=== PATIENT | male | born 1955 | race Caucasian/White ===

== ENCOUNTER 2024-10-19 13:30 | Outpatient (RCR) | payer MEDICARE, BC, SELFPAY ==
--- NOTE | 2024-10-19 15:06 | PT.OPEX ---
PT [place] Outpatient Eval PT [facility] Outpatient Eval Start: 10/19/24 08:28 Freq: Status: Active Protocol: Document 10/19/24 14:44 HLA (Rec: 10/19/24 15:00 HLA [id number]) E-signed By Tammy Workman PT, DPT Physical Therapy Outpatient Evaluation Insurance Information Recert Due Date 01/16/25 Insurance Name Blue Cross/Blue Shield Medical Diagnosis R hip pain, OA, stiffness, upcoming ant R ALCIDES Treating Diagnosis weakness, difficulty amb, preop training with walker Imaging Report Information OA R hip Referring MD [place] Subjective Preferred Name ADAIR Subjective Pt has hx of OA, R hip pain, laterally, increases with standing and walking, limits amb. Also limits sleep. Has had hx of RTC tears, knee scopes, this is his first joint replacement. Pt is active at baseline, works out often, golfs. Wants to get back to activities he enjoys. Pain Comments pain R lateral hip varies - Date of Last Physician Visit 10/14/24 Date of Surgery (If applicable) 10/24/24 Current Work Status Retired Precautions Treatment Precautions/Contraindications R ant ALCIDES pending Weight Bearing Status Weight Bear as Tolerated Therapy Limitations/Systems Review Not Limited Objective Range of Motion R hip flex 0-100 degrees, abd 0-25, ER 0-45, IR 0-20 L hip flex 0-120, abd 0-60, IR 0-60 R knee pain with extension, 5- 110 ankles 0-20 DF, 0-50 PF Strength 4/5 R hip and knee, pain; 5/5 L LE Swelling no edema Palpation pain lat hip on palpation Balance & Gait gt steady, antalgic R hip, grimaces but stable level surfaces. Pt can amb 100 feet only right now due to pain, previously amb golf course 18 holes. Posture good Sensation/Reflexes intact light touch Assessment Assessment/Impression BJ is a 69 year old male with hx of OA, B RTC pain, L knee scope, now has increased OA pain R hip limiting gt and activities and sports. Pt presents with decreased end range R Hip AROM and weakness R hip 4/5 otherwise WNL. He transfers ind and amb 150 feet today no device ind but antalgic R hip. Grimaces with pain. He lives with his in a 1 level home, no stairs to enter. Pt was instructed in anterior ALCIDES ex program (quad sets, glut sets, ham sets, ankle pumps, heel slides, standing hip abduction, and supine lying flat) per protocol to be practiced pre- operatively and for improved learning post-operatively. Pt was instructed in hospital post-op progression in PT, safety, fall prevention. Pt was instructed in positioning in chair, use of ice/polar care, bed, transfer safety, gt safety with walker, stairs, car transfers and outpatient therapy progression. Primary Functional Limitations pain with ADLs, amb, stairs, transfers Plan of Care Rehabilitation Potential Good Physical Therapy Goals Within this session: Pt will verbalize understanding of pre -op/post-op safety, mobility and exercises with home program issued and pt returning for ongoing therapy after ALCIDES replacement. 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 ([employer]) Treatment Plan/Direct Interventions Gait Training,Ice/Cold/ Vasopneumatic,Joint Mobilization,Manual Therapy, Neuromuscular Re-ed,Self-Care/ Home Management,Therapeutic Activities,Therapeutic Exercises Frequency/Duration 1x Patient Will Be Discharged From Therapy Completion of LTG(s),Skills Plateau,Independent w/HEP, Independently Progressing Discharge Plan Comments PT goal met preop; pt to do OP PT in [place] Evaluation Billing Untimed Code Treatment Minutes 10 PT Eval No Charge No Complexity Low Certification Information Initial Certification Date 10/19/24 Ending Certification Date 01/16/25 Provider Signature Required Yes Provider Signature Shows Agreement With POC & Medical Necessity Physician NPI Number Write NPI# Here Physician Comment/Change : Physician Signature & Date Requested Please Sign/Date Here
== END 2024-10-20 08:32 | disposition home or self-care (01) ==
PROVIDERS: PCP Orthopaedic Surgery Sports Medicine; Visit Provider Orthopaedic Surgery Sports Medicine
DX: M16.11 Unilateral primary osteoarthritis, right hip (principal); Z51.89 Encounter for other specified aftercare
CPT/HCPCS: 97110; 97161; 97530

== ENCOUNTER 2024-10-24 06:05 | Day surgery (SDC) | payer MEDICARE, BC, SELFPAY ==
[2024-10-18 14:00] VITALS: BP 136/91; PULSE 80; RESP 16; O2SAT 93
[2024-10-24] VITALS (20 sets, daily range): BP systolic 94–154; BP diastolic 54–87; PULSE 62–83; RESP 14–18; TEMP 36.2–36.6; O2SAT 90–100; BMI 59.3
--- OUTSIDE RECORDS SUMMARY | 2024-10-24 06:10 | XMS_ITS | Clinical Summary ---
Author Organization [facility] Address [address] [place] [address] Care Team Providers Care Orthotist Name Role Phone Elsewhere, Pcp Primary Care Provider Unavailabl e Source Comments Patient records contain information from all sites at [facility]. For routine questions regarding patient records, call [phone] during business hours, M-F 8:00 AM - 5:00 PM Central Time. Record requests for emergency care only can be directed to [phone] at any time.[facility] Allergies Active Allergy Reactions Criticality Noted Date Comments Glucosamine Hives (Reselect Reaction) 8 Medications * This document contains information received from the source organization and may not represent a complete record from that organization. simvastatin (ZOCOR) 40 mg tablet Take 40 mg by mouth daily. Active fish oil 1,000 mg capsule Take 1,000 mg by mouth 2 (two) times a day. Active cetirizine (ZyrTEC) 10 mg tablet Take 10 mg by mouth daily. Active topiramate (TOPAMAX) 50 mg tablet Take 50 mg by mouth 2 (two) times a day. Active multivitamin tablet Take 1 tablet by mouth daily. Active acyclovir (ZOVIRAX) 200 mg capsule Take 200 mg by mouth daily. Once a day as needed Active famotidine (PEPCID) 20 mg tablet Take 1 tablet (20 mg total) by mouth daily. Before bed 30 tablet 3 07/09/2023 Active omeprazole (PriLOSEC OTC) 20 mg EC tablet Take 20 mg by mouth daily. Active ketorolac (Acular) 0.4 % ophthalmic solution INSTILL 1 DROP TO SURGICAL EYE FOUR TIMES DAILY STARTING 1 DAY BEFORE SURGERY 05/23/2024 Active prednisoLONE acetate (Pred Forte) 1 % ophthalmic suspension SHAKE LIQUID AND INSTILL 1 DROP TO SURGICAL EYE FOUR TIMES DAILY STARTING 1 DAY BEFORE SURGERY 05/23/2024 Active Active Problems Problem Noted Date Diagnosed Date Abnormal Computed Tomography Abdomen 01/28/2023 Nodule Pulmonary 09/01/2022 Overview (09/01/2022): Added automatically from request for surgery [id number] Lymphadenopathy Mediastinum 09/01/2022 Overview (09/01/2022): Added automatically from request for surgery [id number] Lymphadenopathy Hilar 09/01/2022 Overview (09/01/2022): Added automatically from request for surgery [id number] Hyperlipidemia Gastroesophageal Reflux Disease NOS Overweight Body Mass Index 25-29.9 Adult Immunizations Immunization Administration Dates Next Due H1N1 All Forms 09/20/2009 Tdap 03/07/2018 Social History Tobacco Use Types Packs/Day Years Used Date Smoking Tobacco: Never Smokeless Tobacco: Never Tobacco Cessation:Counseling Given: Not Answered Alcohol Use Standard Drinks/Week Comments Yes 0 (1 standard drink = 0.6 oz pur e alcohol) occasional Social Connection and Isolat ion Panel [NHANES] Answer Date Recorded In a typical week, how many times do you talk on the phone with family, friends, or neighbors? More than three times a week 08/29/2022 How often do you get togethe r with friends or relatives? Twice a week 08/29/2022 Attends Caoda[employer] Services Not on file 08/29 Active Member of Clubs or Organizations Not on f ile 08/29/2022 Attends Club or Organization Meetings Not on gonzalo e 08/29/2022 Marital Status Not on file 08/29/2022 AUDIT-C Answer Date Recorded Q1: How often do you have a drink containing alc ohol? 2-3 times a week 08/29/2022 Q2: How many drinks containi ng alcohol do you have on a typical day when you are drinking? 1 or 2 08/29/2022 Frequency of Binge Drinking Not on file 08/06 Exercise Vital Sign Answer Date Recorde d On average, how many days pe r week do you engage in moderate to strenuous exercise (like a brisk walk)? 3 days 08/29/2022 On average, how many minutes do you engage in exercise at this level? 30 min 08/29/2022 PRAPARE - Transportation Answer Date Re corded In the past 12 months, has l ack of transportation kept you from medical appointments or from getting medications? No 08/06 In the past 12 months, has l ack of transportation kept you from meetings, work, or from getting things needed for daily living? No 08/29/2022 Housing Stability Vital Sign Answer Robb e Recorded In the last 12 months, was t here a time when you were not able to pay the mortgage or rent on time? No 08/29/2022 In the last 12 months, how many places have you lived? 1 08/29/2022 In the last 12 months, was t here a time when you did not have a steady place to sleep or slept in a halfway (including now)? No 08/29/2022 Nutrition Answer Date Recorded On average, how many serving s of fruits and vegetables do you eat per day (serving size is equal to 1 cup or approximately the size of a tennis ball)? 2-3 08/29/2022 Dental Answer Date Recorded Dental: Regular Dentist Unknown 12/04/19 21 Employment Answer Date Recorded Employment status Retired 08/29/2022 Education Answer Date Recorded What is the highest level of school you have completed or the highest degree you have received? 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 Legal Sex Male 1:59 AM CUTTER MACHINE TENDER Gender Identity Male 08/29/2022 8:29 PM CUTTER MACHINE TENDER Sexual Orientation Straight 08/29/2022 8: 29 PM CUTTER MACHINE TENDER Last Filed Vital Signs Vital Sign Reading Time Taken Comments Blood Pressure 132/78 06/14/2024 9:14 AM CDT Pulse 76 06/14/2024 8:59 AM CDT Temperature 36.7 C (98.1 F) 02/06/2023 6:51 AM CDT Respiratory Rate 16 06/14/2024 8:59 AM CDT Oxygen Saturation 97% 06/14/2024 8:59 AM CDT Inhaled Oxygen Concentration - - Weight 92.8 kg (204 lb 9.6 oz) 06/14/2024 8:59 A M CDT Height 185 cm (6' 0.84) 06/14/2024 8:59 AM CDT Body Mass Index 27.12 06/14/2024 8:59 AM CDT Plan of Treatment Health Maintenance Due Date Last Done Comments CT Colonography 1954 Cologuard 1954 Colonoscopy 1954 Colorectal Cancer Screening 1954 FIT 1954 Hepatitis C Screening 1954 Lipid (Cholesterol) Screening 1954 COVID-19 Vaccine ( season) 2024 09/11/2022, 07/29/2021, 12/31/2020, Additional history exists Influenza Vaccine (#1) 2024 , 08/06/2022, 09/04/2021, Additional history exists Depression Screening (Annual PHQ-2) 10/05/2024 Fall Risk Screen (Annual) 10/05/2024 Fasting Glucose for Diabetes Screening 02/18/2026 02/18/2023, 09/04/2022, 08/21/2022 DTaP,Tdap,and Td Vaccines (3 - Td or Tdap) 03/07/2028 03/07/2018, 09/22/2011 Abdominal Aortic Aneurysm (AAA) Screen Discontinued 02/13/2016 Zoster Vaccines Completed 09/14/2018, 05/20/2018 Pneumococcal vaccine (50+ years) Completed 08/06/2022, 09/04/2021, 06/22/2019 IPV Vaccines Aged Out No longer eligi ble based on patient's age to complete this topic Procedures Procedure Name Priority Date/Time Associated Diagnosis Comments GLUCOSE POCT, B Routine 02/18/2023 8:[address] ABDOMEN PELVIS WITH IV CONTRAST Routine 02/13/2016 9:32 AM CDT from Last 3 Months or Most Recently Relevant to Health Maintenance Results * Glucose, POCT (02/18/2023 8:04 AM CDT) Glucose, POCT, B 91 70 - 140 mg/dL 02/18/2023 8:04 AM CDT MDSE Blood 02/18/2023 8:04 AM CDT 02/18/2023 8:20 AM CDT us Generic Rals LAB POCT ORDERABLES-MANUAL Final Result [facility] [address] [place] [address], [facility] MDSE [facility] [address] [place] [address] * CT Abdomen Pelvis with IV Contrast (02/13/2016 9:32 AM CDT) Anatomical Region Laterality Modality Abdomen, Pelvis N/A Computed Tomogra phy 02/13/2016 9:32 AM CDT Addenda Addendum by Carmelo Camacho M.D. on 02/13/2016 9:32 AM CDT RAD^^^MA CT Abdomen/Pelvis w/ contrast 02/13/2016 09:32:39 Addendum by Carmelo Camacho M.D. on 02/13/2016 8:09 AM CDT RAD^^^MA CT Abdomen/Pelvis w/ contrast 02/13/2016 08:09:00 Impressions 02/13/2016 11:04 AM CDT Diverticulosis. Small right renal cyst. Narrative 02/13/2016 11:04 AM CDT EXAM: CT Abdomen/Pelvis w/ contrast INDICATION: ABD PAIN COMPARISON: None. FINDINGS: 4 partially visualized lung bases are clear. The liver is unremarkable except for a tiny hypodensity in the inferior right lobe too small to accurately characterize. No CT evidence for bladder calculi. 1.2 cm right renal cyst. Kidneys are otherwise normal. Both adrenal glands are normal. Normal spleen and pancreas. No bile duct distention. No retroperitoneal or mesenteric lymphadenopathy. The appendix is normal. No pelvic mass or fluid. Fat-containing right inguinal hernia. Distal colonic diverticulosis without evidence for diverticulitis. Procedure Note Asif Ivory D.O. / ProviderCarmelo M.D. - 02/06/2017 EXAM: CT Abdomen/Pelvis w/ contrast INDICATION: ABD PAIN COMPARISON: None. FINDINGS: 4 partially visualized lung bases are clear. The liver is unremarkable except for a tiny hypodensity in the inferior right lobe too small to accurately characterize. No CT evidence for bladder calculi. 1.2 cm right renal cyst. Kidneys are otherwise normal. Both adrenal glands are normal. Normal spleen and pancreas. No bile duct distention. No retroperitoneal or mesenteric lymphadenopathy. The appendix is normal. No pelvic mass or fluid. Fat-containing right inguinal hernia. Distal colonic diverticulosis without evidence for diverticulitis. IMPRESSION: Diverticulosis. Small right renal cyst. Theresa Ryan [facility] [place] [place] PROCEDURES Edited Result - Final from Last 3 Months or Most Recently Relevant to Health Maintenance Insurance MEDICARE [facility] Advance Directives For more information, please contact: [phone] Documents on File Type Date Recorded Patient Doctor Chiropractic Expl anation Advance Directives 04/04/2020 9:55 AM POA f or health care * Full Code (Latest Code Status on File) Date Activated Date Inactivated Comments 09/04/2022 8:05 AM 09/04/2022 1:45 PM Question Answer Comments Full Code: Discussed Healthcare Agents on File Name Relationship Healthcare Agent Relationship Communication Lala Alverto Daughter Health Care Agent Aida Huerta Spouse First Alternate Health Care Agent Jailene Huerta Son Second Alternate Health Care Agent Care Teams Orthotist Relationship Specialty Start Date End Date Elsewhere, Pcp PCP - General Internal Medicine 09/04/22
--- OUTSIDE RECORDS SUMMARY | 2024-10-24 06:10 | XMS_ITS | Clinical Summary ---
Author Organization [facility] Address [place], [place] [address] Care Team Providers Care Locker Room Clerk Name Role Phone Tawanna Woods APRN, FREELANCE DATA ENTRY Primary Care Provider Allergies Active Allergy Reactions Criticality Noted Date Comments Glucosamine Hives,Rash 03/07/2018 Medications acyclovir (ZOVIRAX) 200 mg capsule Take 200 mg by mouth once daily. Active cetirizine (ZYRTEC) 10 mg tablet Take 10 mg by mouth once daily. Active multivitamin (MVI) tablet Take 1 Tablet by mouth once daily. Active simvastatin (ZOCOR) 40 mg tablet Take 40 mg by mouth at bedtime. Active topiramate (TOPAMAX) 50 mg tablet Take 50 mg by mouth two times daily. Active omega-3 fatty acids (FISH OIL) cap Take 2,000 mg by mouth once daily. Active omeprazole (PRILOSEC) 20 mg Delayed-Release capsule Take 20 mg by mouth once daily before a meal. Active Active Problems No known active problems Immunizations Name Administration Dates Next Due COVID-19 vaccine (Moderna 10 0mcg/0.5mL) PF, MDV 07/29/2021,12/31/2020,12/04/2020 COVID-19 vaccine (Moderna 50 mcg/0.5mL) 12YO+ BIVALENT PF, MDV 09/11/2022 Influenza A (H1N1), Inactivated 09/20/2009 Influenza, High-dose Inactivated 06/22/2019 Influenza, High-dose Quadriv alent Inactivated 08/07/2023,09/04/2021,07/27/2020 Influenza, IIV3 (Age 6-35 mos) 08/19/2016,2012 Influenza, IIV3 (Age >=3 years) 07/19/2012 Influenza, IIV4 09/07/2018 Influenza, IIV4 (=>6mos) MDV 08/14/2014 Influenza, Inactivated AIIV4 (Age 65+ Years) Preserv Free 08/06/2022 Pneumococcal Conj 20-valent (Prevnar 20) 022 Pneumococcal Poly,23-Valent (Pneumovax) 09/04/20 21 Pneumococcal conj 13-Valent (Prevnar 13) 019 Tdap 03/07/2018,09/22/2011 Zoster (Shingrix-RZV, recombinant) 09/14/2018, Social History Tobacco Use Types Packs/Day Years Used Date Smoking Tobacco: Never Smokeless Tobacco: Never Tobacco Cessation:Counseling Given: Not Answered Alcohol Use Standard Drinks/Week Comments Yes 0 (1 standard drink = 0.6 oz pur e alcohol) social Sex and Gender Information Value Date Recorded Sex Assigned at Male 05/25/2024 6:34 AM CDT 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 Gender Identity Male 05/25/2024 6:34 AM CDT Sexual Orientation Straight 05/25/2024 6: 34 AM CDT Obstetrics History Last Filed Vital Signs Vital Sign Reading Time Taken Comments Blood Pressure 127/72 05/25/2024 9:00 AM CDT Pulse 66 05/25/2024 9:00 AM CDT Temperature 36.2 C (97.1 F) 05/25/2024 9:00 AM CDT Respiratory Rate 15 05/25/2024 9:00 AM CDT Oxygen Saturation 99% 05/25/2024 9:00 AM CDT Inhaled Oxygen Concentration - - Weight 90.7 kg (199 lb 15.3 oz) 024 12:11 PM CDT Height 185.4 cm (6' 0.99) 05/11/2024 1 2:11 PM CDT Body Mass Index 26.39 05/11/2024 12:11 PM CDT Plan of Treatment Health Maintenance Due Date Last Done Comments Depression screening for age 12+ 1966 BMI (ht and wt on same day) for age 18+ 1972 Hepatitis C screening for ag e 18-79 1972 Colonoscopy through age 75 1999 Lipids for age 45-75 1999 COVID-19 vaccine series (2023- season) 2024 09/11/2022, 07/29/2021, 12/31/2020, Additional history exists Influenza for age 65+ 06/05/2024 08/07/2023 , 08/06/2022, 09/04/2021, Additional history exists Tetanus booster 03/07/2028 03/07/2018, 09/22/2011 RSV vaccine for adults or (1 - 1-dose 75+ series) 2029 Tdap Completed 03/07/2018, 09/22/2011 Zoster (shingles) series for age 50+ Completed 09/14/2018, 05/20/2018 Pneumococcal series for age 50+ Completed 08/06/2022, 09/04/2021, 06/22/2019 Medical Devices Implanted Type Area Director Of Financial Planning Device Identifier Shelf Expiration Date Model / Serial / Lot Clareon Toric Aspheric Uv Absorbing Iol [id number] +18.0d Implanted:Qty: 1 on 05/11/2024 by Chato Woodson MD at [facility] Right: Eye 12/09/2026 [id number] +18.0D / [id number] / Clareon Iol Aspheric Uv Absorbing Iol Implanted:Qty: 1 on 05/25/2024 by Chato Woodson MD at [facility] Left: Eye [employer] 12/30/2027 [id number] / [id number] / Insurance MEDICARE PROVIDER BASED [facility] Advance Directives Documents on File Type Date Recorded Patient Bake Room 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 Expl anation Power of Aviation Project Manager 05/12/2024 9:31 AM 2020 STATUTORY SHORT FORM POA Healthcare Directive 05/12/2024 9:27 AM HONORING CHOICES [place] HEALTH CARE DIRECTIVE * Full Code (Latest Code Status on File) Date Activated Date Inactivated Comments 05/25/2024 8:45 AM 05/25/2024 4:32 PM Question Answer Comments Code Status Discussion: Reviewed Preferences * Full Code Date Activated Date Inactivated Comments 05/25/2024 6:43 AM 05/25/2024 8:45 AM Question Answer Comments Code Status Discussion: Reviewed Preferences * Full Code Date Activated Date Inactivated Comments 05/11/2024 10:39 AM 05/11/2024 1:25 PM Question Answer Comments Code Status Discussion: Reviewed Preferences * Full Code Date Activated Date Inactivated Comments 05/11/2024 8:44 AM 05/11/2024 10:39 AM Question Answer Comments Code Status Discussion: Reviewed Preferences Care Teams Locker Room Clerk Relationship Specialty Start Date End Date Tawanna Woods, DIRECTOR MEDICAL AFFAIRS, FREELANCE DATA ENTRY [address] [place] [address] PCP - General Family Practice 05/11/24
--- OUTSIDE RECORDS SUMMARY | 2024-10-24 06:10 | XMS_ITS | Continuity of Care Document ---
Author Name [facility] User [facility] Address Unknown Organization Unknown Address Unknown Encounters FILTER APPLIED:Only known Encounters with Admission Date within the last 5 years Encounter Location Admission Discharge Billing Code Recreation Activities Coordinator [place] Unknown [id number] REBEL [place] Unknown [id number] REBEL D[place]
--- OUTSIDE RECORDS SUMMARY | 2024-10-24 06:11 | XMS_ITS | Referral Summary ---
Author Organization [facility] Address [address] [place] [address] Care Team Providers Care Leather Polisher Name Role Phone Elsewhere, Pcp Primary Care Provider Unavailabl e Source Comments Patient records contain information from all sites at [facility]. For routine questions regarding patient records, call [phone] during business hours, M-F 8:00 AM - 5:00 PM Central Time. Record requests for emergency care only can be directed to [phone] at any time.[facility] Allergies Active Allergy Reactions Criticality Noted [...] (09/01/2022): Added automatically from request for surgery [id number] Lymphadenopathy Mediastinum 09/01/2022 Overview (09/01/2022): Added automatically from request for surgery [id number] Lymphadenopathy Hilar 09/01/2022 Overview (09/01/2022): Added automatically from request for surgery [id number] Hyperlipidemia Gastroesophageal Reflux Disease NOS Overweight Body [...] or relatives? Twice a week 08/29/2022 Attends [employer] Not on file 08/29 Active Member [...] place to sleep or slept in a fpc (including now)? 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 Legal Sex Male 1:59 AM CONTRACTS OFFICER Gender Identity Male 08/29/2022 8:29 PM CONTRACTS OFFICER Sexual Orientation Straight 08/29/2022 8: 29 PM CONTRACTS OFFICER Last Filed Vital Signs Vital Sign Reading [...] 06/14/2024 8:59 AM CDT Plan of Treatment Not on file Procedures Procedure Name Priority Date/Time Associated Diagnosis [...] Generic Rals LAB POCT ORDERABLES-MANUAL Final Result [facility] [address] [place] [address], [place] MDSE [facility] [address] [place] [address] * CT Abdomen Pelvis with IV Contrast (02/13/2016 9:32 AM CDT) Anatomical Region Laterality Modality Abdomen, Pelvis N/A Computed Tomogra phy 02/13/2016 9:32 AM CDT Addenda Addendum by Provider, Uriah [place] on 02/13/2016 9:32 AM CDT RAD^^^MA CT Abdomen/Pelvis w/ contrast 02/13/2016 09:32:39 Addendum by ProviderCarmelo M.D. on 02/13/2016 8:09 AM CDT RAD^^^MA [...] diverticulitis. IMPRESSION: Diverticulosis. Small right renal cyst. [place] Theresa Ryan [facility] [place] PROCEDURES Edited Result - Final from Last 3 Months or Most Recently Relevant to Health Maintenance Insurance MEDICARE [facility] Advance Directives For more information, please contact: [phone] Documents on File Type Date Recorded Patient Cut Off Operator Scorer Expl anation Advance Directives 04/04/2020 9:55 AM [...] Second Alternate Health Care Agent Care Teams Leather Polisher Relationship Specialty Start Date End Date Elsewhere, Pcp PCP - General Internal Medicine 09/04/22
--- OUTSIDE RECORDS SUMMARY | 2024-10-24 06:11 | XMS_ITS ---
Author Organization [facility] Address [address] [place] [address] Care Team Providers Care Coppersmith Apprentice Name Role Phone Unavailable Unavailable Unavailable Surgery Details Not on file Complications Check Surgery Details section. Procedure Estimated Blood Loss Check Surgery Details section. Procedure Findings Check Surgery Details section. Procedure Specimens Taken Check Surgery Details section.
[2024-10-24] MEDS: SODIUM CHLORIDE 0.9 % (FLUSH) 10 ML SYRINGE IVF (06:30)
[2024-10-24] MEDS: OXYCODONE (CR) 10 MG TAB.ER.12H PO (06:50)
[2024-10-24] MEDS: ACETAMINOPHEN 500 MG TABLET 1000 MG PO (06:50)
[2024-10-24] MEDS: LACTATED RINGERS 1000 ML 1,000 ML 100 ML IV ×3 (06:50→09:11)
--- NOTE | 2024-10-24 06:50 | W.PM.H&PU ---
History & Physical Update History & Physical Update H&P Reviewed and patient assessed: No changes noted
[2024-10-24] MEDS: fentaNYL 100 MCG/2 ML inj IVP (07:09)
[2024-10-24] MEDS: MIDAZOLAM HCL 1 MG/ML inj IVP (07:09)
--- NOTE | 2024-10-24 07:15 | CRLHL7_ITS ---
For Patients: As a result of the Cures Act, medical imaging exams and procedure reports are released immediately into your electronic medical record. You may view this report before your referring provider. If you have questions, please contact your health care provider. INDICATION: Right total hip arthroplasty. TECHNIQUE: Fluoroscopically guided intraoperative evaluation of a right hip arthroplasty. FINDINGS: A single spot image of the right hip was performed intraoperatively demonstrating a right hip arthroplasty. 36 seconds fluoroscopy time utilized. IMPRESSION : 36 seconds fluoroscopy time utilized intraoperatively. Dictated by Raul Garcia MD @ 10/24/2024 9:53:17 AM (Electronically Signed)
[2024-10-24] MEDS: CEFAZOLIN 2 GM in 0.9 % SODIUM CHLORIDE Mini-bag 100 ML IVPB (07:30)
[2024-10-24] MEDS: TRANEXAMIC ACID 100 MG/ML INJ 1000 MG IV (07:35)
--- NOTE | 2024-10-24 08:09 | P.NB_ITS ---
Nerve Block Nerve Block Time Seen by Provider: 07:10 Date Seen: 10/24/24 Type of block requested by surgeon for post-operative analgesia: NILA/LFCN Side: right Time out performed: Yes Verification of patient name: Yes Verification of date of : Yes Site marking: site marked Name of person performing procedure: mantyl Continuous monitoring Was continuous monitoring of O2 sat, B/P, surveillance system monitor, recorded every 15 minutes?: Yes Procedure Checklist: sterile prep, needles and gloves Ultrasound guided. Images saved: Yes Medications given in 5ml increments after negative aspiration: Ropivicaine %: 0.5 mL: 20 Precedex (mcg): 20 Patient tolerated procedure well: Yes Block Charges Block Charge (with Pro Fee): Femoral Nerve Use of Ultrasound Machine for Block: Yes- US Guidance/pain block
--- NOTE | 2024-10-24 08:45 | P.ORPRC_ITS ---
Procedure Note Date of procedure: 10/24/24 Procedure: PREOPERATIVE DIAGNOSIS: 1. Right hip osteoarthritis, severe, primary POSTOPERATIVE DIAGNOSIS: 1. Right hip osteoarthritis, severe, primary PROCEDURE: 1. Right total hip arthroplasty-anterior approach 2. 19871 - intraoperative fluoroscopy up to 1 hour. SURGEON: Solo Garland MD. TELEPHONE SALES REPRESENTATIVE: Skip Jim PA-C; OREN Elder - Of note, a skilled customer service assistant was critical for this case to aid in patient positioning, tissue retraction, limb manipulation/positioning, and closure. ANESTHESIA: General endotracheal anesthetic EBL: 300 mL IMPLANTS: DePuy J&J uncemented total hip [place] cup size 54, hole eliminator, +4 neutral liner Actis stem, standard offset, size 6 +8.5 mm ceramic 36 mm head COMPLICATIONS: None evident INDICATIONS: The patient is a pleasant 69-year-old male who has experienced severe right hip pain and difficulty bearing weight. Workup included x-rays which revealed severe osteoarthrosis in the hip. Given the deformity, the dysfunction, and the pain, as well as the failure of nonoperative management, recommendation was made for surgery. FINDINGS: Full-thickness chondral loss diffusely throughout the femoral head and acetabulum. Osteophytes around the femoral head/neck junction and acetabulum perimeter. Large effusion upon entering the joint. DESCRIPTION OF PROCEDURE: Following a thorough discussion of risks, benefits, and alternatives consent was obtained and the right hip was marked. The patient was brought to the operating room and placed supine on the operating table. Induction of anesthesia was undertaken. 2 g IV Ancef and 1 g tranexamic acid was administered within 1 hr of incision preoperatively. Proper time-out was performed identifying proper patient, site, procedure. The operative extremity was prepped and draped in the appropriate sterile fashion using ChloraPrep after the patient was positioned on the [place] table with head in neutral alignment and all bony prominences well padded. C-arm fluoroscopic imaging was utilized to confirm proper pelvis rotation and position, and to get true AP films of both the contralateral left, and the affected right hip. This is for comparison. A longitudinal incision was made starting approximately 1 cm distal to the ASIS, and 3-4 cm lateral. The incision was extended distally aiming toward the lateral border the patella. Sharp incision through skin and bovie cautery through the subcutaneous tissue allowed identification of the TFL fascia. This was sharply divided, and the fascia bluntly released from the muscle fibers as we dissected medial. Upon coming to the medial border, we were able to retract the TFL laterally, and penetrated the deeper fascia and identify the crossing circumflex vessels. These were ligated/cauterized. The rectus was elevated from the capsule, and retractors placed laterally and medially along the femoral neck to help with visualization of the capsule. We then performed an inverted T capsulotomy. The capsule was tagged for later repair. Retractors were placed inside the capsule. The femoral neck was visualized after releasing medially down to the lesser trochanter, along the saddle laterally, and up onto the acetabulum. The femoral neck cut was made in line with our preoperative templating. The head was removed in a single piece, and sized. We turned our attention to acetabular preparation. Initially, the labrum was resected from around the perimeter, the pulvinar was excised, allowing us to visualize the false wall. We started the reaming with a 43 mm reamer. This was medialized down to the true wall. We then enlarged our reamers sequentially up to one size less than the selected cup size. We trialed at the same size and found it to have an excellent fit. The selected cup was then opened, inserted, and impacted in line with the goal of 40? of abduction, and 20-25? of anteversion. This was confirmed on C-arm fluoroscopic imaging to be in the appropriate/goal position. Once the cup was placed we placed a hole eliminator and a liner consistent with preop planning. Attention was turned to the femoral preparation. The limb was extended, externally rotated, and adducted. The posteromedial capsule was released, as retractors were placed allowing excellent access to the proximal femur. Initially a hot box checker was followed by canal finder followed by various broaches. We broached sequentially up to the size noted above, found it to have excellent rotational control, and trialing various heads and necks, revealed that appropriate neck offset, and the above noted head size provided the greatest stability, and latter day of length, and offset. C-arm fluoroscopic imaging confirmed position of the stem, as well as leg lengths, which were compared with the pre procedure all fluoroscopic images. Trial implants were removed, the real femoral stem inserted, as was the appropriate head. After reducing, the leg was placed through range of motion and stability was confirmed anterior, posterior, and lateral. A 3 min Betadine soak was then performed, and thorough irrigation with normal saline followed. Closure of the capsule was performed with #1 PDS. Bleeding was confirmed to be controlled at this stage, and the TFL fascia was closed with #0 strata fix. Subcutaneous, and subcuticular closure was performed with 2-0 Vicryl and 4-0 Monocryl, respectively. Dressings were applied, and the patient was awoken from anesthesia and transferred the PACU in stable condition. A skilled customer service assistant was critical for this case to aid in patient positioning, tissue retraction, acetabular and proximal femoral exposure, limb manipulation/positioning, dislocation/relocation, patient safety, and closure. PLAN: 1. Weight bear as tolerated operative extremity. 2. 23 hr perioperative antibiotics. 3. Ice. 4. PT/OT consults for ambulation assistance/mobility education. 5. Social work consult for discharge planning. 6. DVT prophylaxis with at SCDs and Xarelto x5 days followed by aspirin for a total of 1 month..
--- NOTE | 2024-10-24 08:46 | CRLHL7_ITS ---
For Patients: As a result of the Cures Act, medical imaging exams and procedure reports are released immediately into your electronic medical record. You may view this report before your referring provider. If you have questions, please contact your health care provider. INDICATION: Right hip arthroplasty. Follow-up. TECHNIQUE: Two portable postoperative images of the right hip. FINDINGS: Right hip arthroplasty. The components are adequately aligned and well seated. Air within the soft tissues related to recent surgery. IMPRESSION: Right total hip arthroplasty. The components are adequately aligned and well seated. Dictated by Raul Garcia MD @ 10/24/2024 1:47:30 PM (Electronically Signed)
--- NOTE | 2024-10-24 09:33 | P.ANES_ITS ---
Anesthesia Charges Start Date/Time Anesthesia Start Date: 10/24/24 Anesthesia Start Time: 07:24 Stop Date/Time Anesthesia Stop Date: 10/24/24 Anesthesia Stop Time: 09:28 Coding CPT Codes CPT Codes: ANESTH HIP ARTHROPLASTY - 24950 ([id number]) P2 - PATIENT W/MILD SYST DISEASE, QZ - COMMUNITY HEALTH EDUCATION COORDINATOR SVC W/O ARBORIST CLIMBER BY
--- NOTE | 2024-10-24 09:33 | W.ANESCHARGE ---
Anesthesia Charges Start Date/Time Anesthesia Start Date: 10/24/24 Anesthesia Start Time: 07:24 Stop Date/Time Anesthesia Stop Date: 10/24/24 Anesthesia Stop Time: 09:28 Coding CPT Codes CPT Codes: ANESTH HIP ARTHROPLASTY - 21818 ([id number]) P2 - PATIENT W/MILD SYST DISEASE, QZ - FABRIC LAY OUT WORKER SVC W/O FOOD AND BEVERAGE SERVER BY
--- NOTE | 2024-10-24 09:49 | SUR.PHASEI ---
Patient arrived to PACU, anesthesia put on nasal cannula right away. Oxygen saturation with nasal cannula at 2l/min is 97%. Awake and no complaints of pain or nausea
--- NOTE | 2024-10-24 09:59 | SUR.PHASEI ---
Patient awake and comfortable, moved to left side and the on back with HOB elevated. Meets discharge criteria from PACU
--- NOTE | 2024-10-24 11:16 | W.PM.NB ---
Nerve Block Nerve Block Time Seen by Provider: 07:10 Date Seen: 10/24/24 Type of block requested by surgeon for post-operative analgesia: NILA/LFCN Side: right Time out performed: Yes Verification of patient name: Yes Verification of date of : Yes Site marking: site marked Name of person performing procedure: mantyl Continuous monitoring Was continuous monitoring of O2 sat, B/P, cardiac monitor technician, recorded every 15 minutes?: Yes Procedure Checklist: sterile prep, needles and gloves Ultrasound guided. Images saved: Yes Medications given in 5ml increments after negative aspiration: Ropivicaine %: 0.5 mL: 20 Precedex (mcg): 20 Patient tolerated procedure well: Yes Block Charges Block Charge (with Pro Fee): Other Periph Nerve Block Use of Ultrasound Machine for Block: Yes- US Guidance/pain block
[2024-10-24] MEDS: LACTATED RINGERS 500 ML 500 ML 100 ML IV (11:39)
[2024-10-24] MEDS: IBUPROFEN 200 MG TABLET 400 MG PO (11:50)
[2024-10-24] MEDS: OXYCODONE 5 MG TABLET PO (12:25)
--- NOTE | 2024-10-24 12:51 | SUR.PHASEII ---
Patient up and out of bed to bathroom. Was able to void. Retuned to recliner. Waiting for lunch to be delivered.
--- NOTE | 2024-10-24 14:55 | SUR.PHASEII ---
Pt passed OT and PT. Patient verbalized readiness to be discharged and understanding of discharge instructions.
== END 2024-10-24 14:58 | disposition home or self-care (01) ==
LOC: OR 06:09
PROVIDERS: Visit Provider Orthopaedic Surgery Sports Medicine
PROC: (CPT 27130; principal; 2024-10-24 07:15)
DX: M16.11 Unilateral primary osteoarthritis, right hip (principal); G89.18 Other acute postprocedural pain
CPT/HCPCS: 27130; 01214; 36415; 64447; 64450; 73501; 76000; 76942; 86850; 86900; 86901; 97110; 97116; 97161; 97165; 97535; A9270; C1776; J0330; J0665; J0690; J1100; J1630; J2250; J2371; J2405; J2704; J3010; J3475; J3490; J7120

== ENCOUNTER 2025-03-24 10:44 | Outpatient (CLI) | payer MEDICARE, BC, SELFPAY ==
--- OUTSIDE RECORDS SUMMARY | 2025-03-24 10:54 | XMS_ITS | Clinical Summary ---
Author Organization [facility] Address [address] [place] [address] Care Team Providers Care Light Air Defense Artillery Crewmember Name Role Phone Elsewhere, Pcp Primary Care Provider Unavailabl e Source Comments Patient records contain information from all sites at [facility]. For routine questions regarding patient records, call [phone] during business hours, M-F 8:00 AM - 5:00 PM Central Time. Record requests for emergency care only can be directed to [phone] at any time.[facility] Allergies Active Allergy Reactions Criticality Noted Date [...] (09/01/2022): Added automatically from request for surgery [id number] Lymphadenopathy Mediastinum 09/01/2022 Overview (09/01/2022): Added automatically from request for surgery [id number] Lymphadenopathy Hilar 09/01/2022 Overview (09/01/2022): Added automatically from request for surgery [id number] Hyperlipidemia Gastroesophageal Reflux Disease NOS Overweight Body [...] or relatives? Twice a week 08/29/2022 Attends Confucianism Services Not on file 08/29 Active Member [...] place to sleep or slept in a alf (including now)? No 08/29/2022 Nutrition Answer Date [...] Sex Assigned at Male 08/29/2022 8:29 PM GREEN BUILDING MATERIALS DESIGNER Legal Sex Male 1:59 AM GREEN BUILDING MATERIALS DESIGNER Gender Identity Male 08/29/2022 8:29 PM GREEN BUILDING MATERIALS DESIGNER Sexual Orientation Straight 08/29/2022 8: 29 PM GREEN BUILDING MATERIALS DESIGNER Last Filed Vital Signs Vital Sign Reading [...] Generic Rals LAB POCT ORDERABLES-MANUAL Final Result [facility] [address] [place] [address], [facility] MDSE [facility] [address] [place] [address] * CT Abdomen Pelvis with IV Contrast [...] Diverticulosis. Small right renal cyst. Theresa Ryan [facility] CT PROCEDURES Edited Result - Final from Last 3 Months or Most Recently Relevant to Health Maintenance Insurance MEDICARE [facility] Advance Directives For more information, please contact: [phone] Documents on File Type Date Recorded Patient Mercerizer Expl anation Advance Directives 04/04/2020 9:55 AM [...] Second Alternate Health Care Agent Care Teams Light Air Defense Artillery Crewmember Relationship Specialty Start Date End Date Elsewhere, Pcp PCP - General Internal Medicine 09/04/22
--- NOTE | 2025-03-24 11:15 | MR_ITS ---
[address] [address] Phone:?[phone] Fax:?[phone] Referring Physician Information: Solo Garland M.D. [id number] [address] Phone:?[phone] Fax:?[phone] Patient:Morgan Huerta D.O.B:?1955 Sex:?Male Phone:?[phone] [facility] MRN:?[id number] Exam Date:?03/24/2025 EXAM: MRI of the LEFT KNEE, without contrast CLINICAL: Male, 69 years old, with medial left knee pain. INDICATION: Evaluate for medial meniscus tear versus other knee internal derangement etiology. PRIOR SURGERY: None reported. PLAIN FILMS: 03/17/2025 radiographic series of the left knee. COMPARISONS: No prior MRIs available. TECHNICAL: Using a 1.5 Micaela MR scanner and a localizing surface coil: 3.0 mm?sagittals: PD, PDFS 3.0 mm?coronals: PD, STIR 3.0 mm?axials: PD, T2FS SEDATION: None. CONTRAST: None. IMPRESSION: 1. Complex tear of the posterior one-half of the medial meniscus with marked peripheral extrusion documenting decrease towards loss of normal medial meniscal load-sharing function. 2. Mild to moderate medial compartment chondromalacia with minimal subjacent marrow edema. 3. Mild to moderate centralized and lateral patellofemoral chondromalacia/osteoarthritis with mild subjacent bone marrow edema. 4. Small towards moderate knee effusion. 5. No lateral meniscus tear. 6. No cruciate or collateral ligament injuries. FINDINGS: Knee joint: Effusion: Small towards moderate knee effusion. Popliteal cyst: None. Loose bodies: None. Subcutaneous and extra-articular soft tissues: Unremarkable. Ligaments: ACL: Intact and normal. PCL: Intact and normal. MCL: Intact and normal. FCL: Intact and normal. Posterolateral corner: Intact popliteus, biceps femoris, iliotibial band, popliteofibular ligament and lateral gastrocnemius. Posteromedial corner: Intact pes anserinus and posterior oblique ligament. Extensor mechanism: Patellar tendon: Intact and normal. Quadriceps tendon: Intact and normal. Retinacula: Intact and normal. Fat pads: Unremarkable. Medial compartment: Medial meniscus: Approximately 3 cm complex tear of the posterior one-half of the medial meniscus predominantly consists of oblique horizontal tear of inferior surface but also smaller areas of irregularity of apex and superior surface near apex (sagittal images 15-6; coronal images 23-15). Relatively marked 5 mm of peripheral extrusion is expected to document associated decrease, likely towards loss, of normal medial meniscal load-sharing function (coronal image 15). Medial femoral condyle: Foci of predominantly superficial grade II, and perhaps much more localized grade III, chondromalacia of the central medial femoral condyle is accompanied by minimal focus of slight subjacent marrow edema without more prominent osseous reactive change (coronal images 21-15). Medial tibial plateau: Also chondral thinning of the central lateral femoral condyle, without subjacent marrow edema. Lateral compartment: Lateral meniscus: Intact and normal. Lateral femoral condyle: No demonstrable chondromalacia. Lateral tibial plateau: No demonstrable chondromalacia. Patellofemoral joint: Patella: Approximately 15 x 10 mm grade III-IV chondromalacia/thinning and irregularity of the superior aspect of the junction of median patellar ridge and lateral facet is accompanied by minimal slight subjacent marrow edema (axial images 6-9). Also less prominent smaller area grade II-III chondromalacia of the more inferior aspect of the lateral patellar facet is accompanied by mild subjacent reactive marrow edema (axial images 10-13). Trochlea: Approximately 10 mm grade II-III chondromalacia of the central femoral trochlea is accompanied by minimal subjacent marrow edema. Proximal tibiofibular joint: Unremarkable. Bones: No other marrow edema or fractures. Neurovascular: Popliteal artery/vein: Normal. Anterior tibial artery: No aberrant variant. Tibial nerve: Normal. Popliteal nerve: Normal. Common peroneal nerve: Normal. [facility] Electronically signed on 03/26/2025 8:19:00 PM by Fredy Gates M.D.
--- OUTSIDE RECORDS SUMMARY | 2025-03-25 00:32 | XMS_ITS | Clinical Summary ---
Author Organization [facility] Address [address] [place] [address] Care Team Providers Care Construction Driver Name Role Phone Tawanna Woods APRN, WOOL FLEECE GRADER Primary Care Provider Allergies Active Allergy Reactions Criticality Noted Date Comments Glucosamine Hives,Rash 03/07/2018 Medications acyclovir (ZOVIRAX) 200 mg capsule Take 200 mg by mouth once daily. Active cetirizine (ZYRTEC) 10 mg tablet Take 10 mg by mouth once daily. Active multivitamin (MVI) tablet Take 1 Tablet by mouth once daily. Active simvastatin (ZOCOR) 40 mg tablet Take 40 mg by mouth once daily with lunch. Active topiramate (TOPAMAX) 50 mg tablet Take 50 mg by mouth two times daily. Active omega-3 fatty acids (FISH OIL) cap Take 2,000 mg by mouth once daily. Active omeprazole (PRILOSEC) 20 mg Delayed-Release capsule Take 20 mg by mouth once daily before a meal. Active aspirin (ECOTRIN) 81 mg enteric coated tablet Take 81 mg by mouth once daily with a meal. Active famotidine (PEPCID) 20 mg tablet Take 20 mg by mouth at bedtime. Active Active Problems Problem Noted Date Diagnosed Date H/O colectomy 11/17/2024 Hyperlipidemia Migraine headache Acid reflux Colovesical fistula Immunizations Immunization Administration Dates Next Due COVID-19 vaccine (Moderna [...] = 0.6 oz pur e alcohol) social Social Connections Answer Date Recorded Do you often feel lonely or isolated from those around you? 0 11/17/2024 Financial Resource Strain Answer Date R ecorded Difficulty of Paying Living Expenses 3 11/17/2024 Difficulty of Paying Living Expenses Not on file 11/17/2024 Food Insecurity Answer Date Recorded Do you worry your food will run out before you are able to buy more? 1 11/17/2024 Transportation Needs Answer Date Record ed Does lack of transportation keep you from medica l appointments? 1 11/17/2024 Does lack of transportation keep you from work, meetings or getting things that you need? 1 11/17/2024 Housing Stability Answer Date Recorded What is your housing situation today? 1 11/17/2024 Interpersonal Safety Answer Date Record ed Are you being hit, kicked, p ushed or yelled at (see row info)? No 11/17/2024 Interpersonal Safety Abuse 12 - 18 Not on file 11/17/2024 Interpersonal Safety Ambulatory Vulnerability No t on file 11/17/2024 Utilities Answer Date Recorded Do you have trouble paying f or utilities (for example, heat, electricity, water, phone)? 1 11/17/2024 Sex and Gender Information Value Date Recorded Sex Assigned at Male 05/25/2024 6:34 AM CDT Legal Sex Male 6:30 AM RESIDENTIAL DOOR UNIT INSTALLER Gender Identity Male 05/25/2024 6:34 AM CDT Sexual Orientation Straight 05/25/2024 6: 34 AM CDT Obstetrics History Last Filed Vital Signs Vital Sign Reading Time Taken Comments Blood Pressure 160/93 11/20/2024 6:40 AM RESIDENTIAL DOOR UNIT INSTALLER was up and walking Pulse 75 11/20/2024 6:40 AM RESIDENTIAL DOOR UNIT INSTALLER Temperature 36.4 C (97.5 F) 11/20/2024 6:40 AM RESIDENTIAL DOOR UNIT INSTALLER Respiratory Rate 16 11/20/2024 6:40 AM RESIDENTIAL DOOR UNIT INSTALLER Oxygen Saturation 98% 11/20/2024 6:4 0 AM RESIDENTIAL DOOR UNIT INSTALLER Inhaled Oxygen Concentration - - Weight 91.7 kg (202 lb 3.2 oz) 11/20/2024 6:40 AM RESIDENTIAL DOOR UNIT INSTALLER Height 185.4 cm (6' 1) 11/17/2024 6:15 AM RESIDENTIAL DOOR UNIT INSTALLER Body Mass Index 26.68 11/17/2024 6:15 AM RESIDENTIAL DOOR UNIT INSTALLER Plan of Treatment Health Maintenance Due Date Last Done Comments Depression screening for age 12+ 1966 BMI (ht and wt on same day) for age 18+ 1972 Hepatitis C screening for age 18-79 1972 Colonoscopy through age 75 1999 Lipids for age 45-75 1999 COVID-19 vaccine series ( season) 2024 09/11/2022, 07/29/2021, 12/31/2020, Additional history exists Influenza Vaccine (Season Ended) 2025 08/06/2022, 06/22/2019, 09/07/2018, Additional history exists Tetanus booster 03/07/2028 03/07/2018, 09/22/2011 RSV vaccine for adults or (1 - 1-dose 75+ series) 2029 Tdap Completed 03/07/2018, 09/22/2011 Zoster (shingles) series for age 50+ Completed 09/14/2018, 05/20/2018 Pneumococcal series for age 50+ Completed 08/06/2022, 09/04/2021, 06/22/2019 Hepatitis B series for 19+ Aged Out N o longer eligible based on patient's age to complete this topic Medical Devices Implanted Type Area Shuttle Spotter Device Identifier Shelf Expiration Date Model / Serial / Lot Clareon Toric Aspheric Uv Absorbing Iol [id number] +18.0d Implanted:Qty: 1 on 05/11/2024 by Chtao Woodson MD at [facility] Right: Eye 12/09/2026 [id number] +18.0D / [id number] / Clareon Iol Aspheric Uv Absorbing Iol Implanted:Qty: 1 on 05/25/2024 by Chato Woodson MD at [facility] Left: Eye [employer] 12/30/2027 [id number] .[id number] / [id number] / Medium Clips - [id number] Implanted:Qty: 1 on 11/17/2024 by Rodrigo Dawson MD at [facility] N/A: Abdomen [employer] 10/04/2028 [id number] / / [id number] Medium/Large Clips - [id number] Implanted:Qty: 1 on 11/17/2024 by Rodrigo Dawson MD at [facility] N/A: Abdomen [employer] [id number] / / Insurance MEDICARE PROVIDER BASED [facility] Advance Directives Documents on File Type Date Recorded Patient General Duty Nurse Expl anation Power of Candle Extrusion Machine Operator 05/12/2024 9:31 AM 2020 STATUTORY SHORT FORM POA Healthcare Directive 05/12/2024 9:27 AM HONORING CHOICES [place] HEALTH CARE DIRECTIVE * Full Code (Latest Code Status on File) Date Activated Date Inactivated Comments 11/17/2024 2:26 PM 11/20/2024 9:25 PM Question Answer Comments Code Status Discussion: Unable to Assess Preferences, Provider to review later * Full Code Date Activated Date Inactivated Comments 11/17/2024 6:23 AM 11/17/2024 2:26 PM Question Answer Comments Code Status Discussion: Unable to Assess Preferences, Provider to review later * Full Code Date Activated Date Inactivated Comments 05/25/2024 8:45 [...] Code Status Discussion: Reviewed Preferences Care Teams Construction Driver Relationship Specialty Start Date End Date Tawanna Woods, REGULATORY AFFAIRS PORTFOLIO LEADER, WOOL FLEECE GRADER [address] [place] [address] PCP - General Family Practice 05/11/24
--- OUTSIDE RECORDS SUMMARY | 2025-03-25 00:32 | XMS_ITS | Clinical Summary ---
Author Organization [facility] Address [address] [place] [address] Care Team Providers Care Pin Machine Tender Name Role Phone Elsewhere, Pcp Primary Care Provider Unavailabl e Source Comments Patient records contain information from all sites at [facility]. For routine questions regarding patient records, call [phone] during business hours, M-F 8:00 AM - 5:00 PM Central Time. Record requests for emergency care only can be directed to [phone] at any time.[facility] Allergies Active Allergy Reactions Criticality Noted Date [...] (09/01/2022): Added automatically from request for surgery [id number] Lymphadenopathy Mediastinum 09/01/2022 Overview (09/01/2022): Added automatically from request for surgery [id number] Lymphadenopathy Hilar 09/01/2022 Overview (09/01/2022): Added automatically from request for surgery [id number] Hyperlipidemia Gastroesophageal Reflux Disease NOS Overweight Body Mass Index 25-29.9 Adult Immunizations Immunization Administration Dates Next Due H1N1 All Forms 09/20/2009 Tdap 03/07/2018 Social History Tobacco Use Types Packs/Day Years Used Date Smoking Tobacco: Never Smokeless Tobacco: Never Tobacco Cessation:Counseling Given: Not Answered Alcohol Use Standard Drinks/Week Comments Yes 0 (1 standard drink = 0.6 oz pur e alcohol) occasional PRAPARE - Transportation Answer Date Re corded [...] place to sleep or slept in a detention (including now)? No 08/29/2022 Education Answer Date Recorded What is the highest level of school you have completed or the highest degree you have received? 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 Legal Sex Male 1:59 AM DYE HOUSE WHEEL OPERATOR Gender Identity Male 08/29/2022 8:29 PM DYE HOUSE WHEEL OPERATOR Sexual Orientation Straight 08/29/2022 8: 29 PM DYE HOUSE WHEEL OPERATOR Last Filed Vital Signs Vital Sign Reading [...] * Glucose, POCT (02/18/2023 8:04 AM CDT) [facility] Glucose, POCT, B 91 70 - 140 mg/dL 02/18/2023 8:04 AM CDT MDSE Blood 02/18/2023 8:04 AM CDT 02/18/2023 8:20 AM CDT us Generic [facility] POCT ORDERABLES-MANUAL Final Result [facility] [address] [place] [address], [facility] [address] [place] [address] * CT Abdomen Pelvis with IV Contrast (02/13/2016 9:32 AM CDT) Anatomical Region Laterality Modality Abdomen, Pelvis N/A Computed Tomogra phy 02/13/2016 9:32 AM CDT Addenda Addendum by ProviderCarmelo M.D. on 02/13/2016 9:32 AM CDT RAD^^^MA [...] diverticulitis. Procedure Note Asif Ivory D.O. / Carmelo Camacho M.D. - 02/06/2017 EXAM: CT Abdomen/Pelvis w/ [...] Diverticulosis. Small right renal cyst. Theresa Ryan [facility] CT PROCEDURES Edited Result - Final from Last 3 Months or Most Recently Relevant to Health Maintenance Insurance MEDICARE [facility] Advance Directives For more information, please contact: [phone] Documents on File Type Date Recorded Patient Speeder Machine Operator Expl anation Advance Directives 04/04/2020 9:55 AM [...] Second Alternate Health Care Agent Care Teams Pin Machine Tender Relationship Specialty Start Date End Date Elsewhere, Pcp PCP - General Internal Medicine 09/04/22
== END 2025-03-24 10:45 | disposition home or self-care (01) ==
PROVIDERS: Visit Provider Orthopaedic Surgery Sports Medicine
DX: M25.562 Pain in left knee (principal); S83.242A Other tear of medial meniscus, current injury, left knee, initial encounter; M17.12 Unilateral primary osteoarthritis, left knee; M25.462 Effusion, left knee
CPT/HCPCS: 73721

== ENCOUNTER 2025-05-01 08:47 | Day surgery (SDC) | payer MEDICARE, BC, SELFPAY ==
[2025-05-01] VITALS (11 sets, daily range): BP systolic 108–157; BP diastolic 67–88; PULSE 62–70; RESP 16–18; TEMP 35.8–37.3; O2SAT 95–98; BMI 25.4
[2025-05-01] MEDS: LACTATED RINGERS 1000 ML 1,000 ML 100 ML IV (08:55)
--- NOTE | 2025-05-01 09:27 | W.PM.H&PU ---
History & Physical Update History & Physical Update H&P Reviewed and patient assessed: No changes noted
[2025-05-01] MEDS: SODIUM CHLORIDE 0.9 % (FLUSH) 10 ML SYRINGE IVF (09:35)
--- NOTE | 2025-05-01 10:44 | PM.ORPRC ---
Procedure Note Date of procedure: 05/01/25 Procedure: PREOPERATIVE DIAGNOSIS: 1. Left knee medial meniscus tear POSTOPERATIVE DIAGNOSIS: 1. Left knee medial meniscus tear 2. 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 Left knee arthroscopic partial medial meniscectomy SURGEON: Solo Garland M.D. FRAME CARVER SPINDLE: Leonardo LOTT. Of note, an corporate legal assistant was critical for this case to aid in patient positioning, knee manipulation, instrument exchange, and closure. ANESTHESIA: Spinal EBL: 2ml TOURNIQUET: 30 min at 250 torr COMPLICATIONS: None evident INDICATIONS: The patient is a pleasant 70-year-old male who has experienced left knee pain particularly with any twisting or turning. Physical exam was concerning for medial meniscus tear, this was confirmed on MRI. Additionally, attempted nonoperative management has been tried, and failed. Thus, surgery was recommended. FINDINGS: Complex tearing posterior horn to midbody medial meniscus with some unstable flaps. It approached the posterior root, but the posterior root was intact. The tear did extend to the depth of the capsule, or nearly that deep at the posterior horn region. It also had a horizontal and vertical tearing components. Lateral meniscus intact. Lateral articular cartilage intact. Grade 2-3 lateral aspect trochlear groove but relatively healthy patellar articular cartilage. Grade 2-3 chondromalacia medial femur broadly especially weight-bearing portion and posterior. ACL and PCL intact and robust. DESCRIPTION OF PROCEDURE: After a thorough discussion of risks, benefits, and alternatives, the patient was brought to the operating room and placed upon the operating table. Induction of anesthesia was undertaken as previously noted. 2g iv Ancef was administered within 1 hr of incision preoperatively. Appropriate time-out was performed identifying proper patient, site, and procedure. The left lower extremity was prepped and draped in the appropriate sterile fashion using ChloraPrep. The limb was exsanguinated and tourniquet inflated. Anterolateral and anteromedial portals were established with an 11 blade, and a diagnostic arthroscopy was performed. This identified the findings as noted above. Following the diagnostic arthroscopy, a partial medial menisectomy was performed with the combination of basket forceps and a motorized shaver. Following this, the meniscus was re-probed and found to be stable. Approximately 25-33 % of the overall meniscus required resection. At this stage, the shaver was reinserted into the suprapatellar pouch and all remaining meniscal debris was evacuated. Instruments were removed, excess fluid was drained, and closure performed with 4-0 Monocryl with Steri-Strips. Dressings were applied, the tourniquet deflated, and the patient was awoken from anesthesia and transferred to the PACU in stable condition. PLAN: 1. Weightbear as tolerated operative extremity. Crutch / walker ambulation assistance PRN. Straight leg raise to be initiated starting tomorrow by the patient. 2. Ice, acetominophen and/or ibuprofen, and Oxycodone for pain as needed. 3. Knee range of motion and quad sets/straight leg raise regularly 4. Follow up with PA visit in 7-10 days. for a wound check. Initiate physical therapy at that time
[2025-05-01] MEDS: ROPIVACAINE 0.5% 30 ML 150 MG INJECTION (10:45)
--- NOTE | 2025-05-01 11:02 | P.ANES_ITS ---
Anesthesia Charges Start Date/Time Anesthesia Start Date: 05/01/25 Anesthesia Start Time: 10:01 Stop Date/Time Anesthesia Stop Date: 05/01/25 Anesthesia Stop Time: 10:58 Summary Extremes of Age - Over 70 or under 1: POWER GENERATION EQUIPMENT REPAIRER Coding CPT Codes CPT Codes: ANESTH KNEE JOINT SURGERY - 51670 ([id number]) P2 - PATIENT W/MILD SYST DISEASE, QZ - POWER GENERATION EQUIPMENT REPAIRER SVC W/O SALES CORRESPONDENT BY Additional Codes: Summary - Extremes of Age - Over 70 or under 1: POWER GENERATION EQUIPMENT REPAIRER ([id number])
--- NOTE | 2025-05-01 11:02 | W.ANESCHARGE ---
Anesthesia Charges Start Date/Time Anesthesia Start Date: 05/01/25 Anesthesia Start Time: 10:01 Stop Date/Time Anesthesia Stop Date: 05/01/25 Anesthesia Stop Time: 10:58 Summary Extremes of Age - Over 70 or under 1: HOROLOGIST APPRENTICE Coding CPT Codes CPT Codes: ANESTH KNEE JOINT SURGERY - 41507 ([id number]) P2 - PATIENT W/MILD SYST DISEASE, QZ - HOROLOGIST APPRENTICE SVC W/O AUTOMATIC CENTRIFUGAL STATION OPERATOR BY Additional Codes: Summary - Extremes of Age - Over 70 or under 1: HOROLOGIST APPRENTICE ([id number])
--- NOTE | 2025-05-01 13:03 | SUR.PHASEII ---
pt tolerated Diet Coke and crackers, Barehugger on. pt states he was warm, temp 96.8. Ambulated to bathroom with sba. Tolerated without difficulty. Pt did void on 2nd attempt. Denies pain. dressing c/d/i. Wheelchair out to car with and RN.
== END 2025-05-01 13:06 | disposition home or self-care (01) ==
LOC: OR 08:48
PROVIDERS: Visit Provider Orthopaedic Surgery Sports Medicine
PROC: (CPT 29870; principal; 2025-05-01 10:00)
DX: S83.232A Complex tear of medial meniscus, current injury, left knee, initial encounter (principal); M94.262 Chondromalacia, left knee
CPT/HCPCS: 29881; 01400; 99100; J0690; J2250; J2405; J2704; J2795; J3490; J7120